=== PATIENT | female | born 1990 | race Caucasian/White ===

== ENCOUNTER 2022-02-17 07:03 | Emergency (ER) | payer MEDICAID, SELFPAY ==
[2022-02-17 07:04] VITALS: BP 145/85; PULSE 100; RESP 18; TEMP 36.4; O2SAT 100
--- NOTE | 2022-02-17 07:10 | PC.NURSE ---
when questioned pt admits to marijuana and meth use within last several days and thinks that may have set me over the edge . pt fearful. crying. anxious. in green scrubs with friend at bedside. abrasions noted to right forearm.
[2022-02-17 07:39] LABS: Basophils Absolute Auto 0.1 K/mm3 (0.0-0.1); Basophils Percent Auto 0.6 % (0.2-1.2); Eosinophils Absolute Auto 0.2 K/mm3 (0-0.3); Eosinophils Percent Auto 1.8 % (0-4.4); Hematocrit 44.5 % (37.0-47.0); Hemoglobin 15.1 g/dL (12.0-15.0); Immature Granulocyte Absolute 0.03 K/mm3 (0.00-0.031); Immature Granulocyte Percent A 0.3 % (0-0.5); Lymphocytes Absolute Auto 1.59 K/mm3 (0.9-3.2); Lymphocytes Percent Auto 13.4 % (18.3-44.2); Mean Corpuscular HGB Conc 33.9 g/dl (32-36); Mean Corpuscular Hemoglobin 31.2 pg (26-34); Mean Corpuscular Volume 91.9 fl (80-100); Mean Platelet Volume 9.9 fl (7.4-10.4); Monocytes Absolute Auto 0.5 K/mm3 (0.1-0.6); Neutrophils Absolute Auto 9.5 K/mm3 (1.3-6.7); Neutrophils Percent Auto 79.9 % (45.5-73.1); Platelet Count Result 296 k/mm3 (150-375); Red Blood Count 4.84 M/mm3 (4.2-5.4); Red Cell Distribution Width 12.6 % (11.5-14.5); White Blood Count 11.9 K/mm3 (4.5-10.0)
[2022-02-17 07:46] VITALS: BP 117/84; PULSE 93; TEMP 37; O2SAT 96
[2022-02-17 07:49] LABS: Alanine Aminotransferase 15 U/L (6-35); Albumin Level 4.7 g/dL (3.5-5.1); Alkaline Phosphatase 59 U/L (38-126); Anion Gap 6 mmol/L (8-16); Aspartate Amino Transferase 23 U/L (14-36); Bilirubin,Total 0.7 mg/dL (0.2-1.3); Blood Urea Nitrogen 15 mg/dL (7-17); Calcium 9.1 mg/dL (8.4-10.2); Carbon Dioxide 24 mmol/L (22-30); Chloride 108 mmol/L (98-107); Estimated CRCL calculation 110 ml/min; Estimated Glomerular Filt Rate > 60; Glucose 112 mg/dL (65-110); Potassium 4.1 mmol/L (3.4-5.0); Sodium 138 mmol/L (137-145)
[2022-02-17 07:50] LABS: Acetaminophen < 10 ug/mL (10-30); Ethanol < 10 mg/dL (<10); Salicylate < 1.0 mg/dL (2-20)
--- NOTE | 2022-02-17 08:04 | ED.PSYCH ---
HPI - Psych General Chief Complaint: Psychiatric Symptoms <Tg Oro MD - Last Filed: 02/17/22 18:53> Stated Complaint: hearing and seeing things <Tg Oro MD - Last Filed: 02/17/22 18:53> Time Seen by Provider: 02/17/22 08:04 <Tg Oro MD - Last Filed: 02/17/22 18:53> Source: patient <Tg Oro MD - Last Filed: 02/17/22 18:53> Mode of arrival: ambulatory <Tg Oro MD - Last Filed: 02/17/22 18:53> Limitations: no limitations <Tg Oro MD - Last Filed: 02/17/22 18:53> History of Present Illness HPI Narrative: Patient is 31 years old white female brought to the emergency room by her partner who is telling me that patient been seeing things and hearing things for the last 9 months got worse over the last 2 weeks. Last night patient tried to cut her arms and the burning, trying to kill herself. She denies any fever, chills, chest pain, shortness of breath, headache <Tg Oro MD - Last Filed: 02/17/22 18:53> Related Data Allergies/Adverse Reactions: Allergies Allergy/AdvReac Type Severity Reaction Status Date / Time No Known Allergies Allergy Verified 02/18/22 00:21 <Tg Oro MD - Last Filed: 02/17/22 18:53> Review of Systems Review of Systems: All systems reviewed & are unremarkable except as noted in HPI and below <Tg Oro MD - Last Filed: 02/17/22 18:53> PMFSH Social History Social History: Social History Substance use type: marijuana and amphetamines <Tg Oro MD - Last Filed: 02/17/22 18:53> Exam Narrative: General appearance: Well-developed, well-nourished, crying, her partner at the bedside Skin: Normal color multiple cuts of the left forearm Head: Normocephalic, nontraumatic Eyes: Clear conjunctiva ENT: Oropharynx normal, ears normal, nose normal Neck: Supple, nontender Chest and respiratory: Airway patent, no respiratory distress, no accessory muscle use Heart: Regular rate/rhythm Abdomen: Soft, nontender, no organomegaly, quiet bowel sounds Vascular: Normal peripheral pulses, normal capillary refill. Musculoskeletal: Normal range of motion, nontender back Neurologic: Alert and oriented ?3, severely depressed, crying <Tg Oro MD - Last Filed: 02/17/22 18:53> Course Reevaluation(s) Reevaluation #1: signed out to me pending psych eval and dispo. Psych saw pt and rec transfer to psych facility. She has been resting comfortably during my shift. Signed out to oncoming ER physician. <Sejal Fowler MD - Last Filed: 02/18/22 07:10> Reevaluation #2: Patient was accepted to [facility] by Dr. Randle. Patient is going as involuntary status. Patient will be transferred by [facility]. At this time transport is pending. <Ten Cartwright MD - Last Filed: 02/18/22 23:28> Vital Signs Vital signs: Vital Signs Temperature 97.6 F 02/17/22 07:04 Pulse Rate 100 02/17/22 07:04 Respiratory Rate 18 02/17/22 07:04 Blood Pressure 145/85 H 02/17/22 07:04 Pulse Oximetry 100 02/17/22 07:04 Oxygen Delivery Room Air 02/17/22 07:04 Temperature 97.6 F 02/18/22 22:42 Pulse Rate 66 02/18/22 22:42 Respiratory Rate 16 02/18/22 22:42 Blood Pressure 96/56 L 02/18/22 22:42 Pulse Oximetry 97 02/18/22 22:42 Oxygen Delivery Room Air 02/17/22 07:04 <Tg Oro MD - Last Filed: 02/17/22 18:53> Vital Signs Temperature 97.6 F 02/17/22 07:04 Pulse Rate 100 02/17/22 07:04 Respiratory Rate 18 02/17/22 07:04 Blood Pressure 145/85 H 02/17/22 07:04 Pulse Oximetry 100 02/17/22 07:04 Oxygen Delivery Room Air 02/17/22 07:
--- NOTE | 2022-02-17 08:12 | PC.NURSE ---
lucille barton for regular diet with no sharps.
[2022-02-17] MEDS: Please add drug allergy info to patient profile. XX (08:30)
[2022-02-17] MEDS: ONDANSETRON HCL ODT 4 MG TABLET PO (08:31)
[2022-02-17] MEDS: LORazepam (*CRX) 0.5 MG TABLET 1 MG PO (08:31)
[2022-02-17 08:33] LABS: SARS-CoV-2 RNA PCR Negative
[2022-02-17 10:56] LABS: Appearance Urine Clear (Clear); Bilirubin Urine Negative (Negative); Blood Urine 1+ (Negative); Color Urine Yellow (Yellow); Glucose Urine UA Negative (Negative); Ketones Urine 2+ mg/dL (Negative); Leukocyte Esterase Ur Negative LEU/UL (Negative); Nitrate Urine Positive (Negative); Protein Urine Negative (Negative); Urobilinogen Urine 0.2 mg/dL (<2.0)
[2022-02-17 11:05] LABS: Bacteria Urine Trace /hpf; Mucus Urine Rare /lpf; RBC Urine 0-2 /hpf (0-2); Squamous Epithelial Cell Urine Rare /hpf (Few)
[2022-02-17 11:07] LABS: Add Urine Microscopic? YES
[2022-02-17 11:12] LABS: Barbiturate Screen Urine Negative (Negative); Benzodiazepines Screen Urine Positive (Negative)
--- NOTE | 2022-02-17 11:43 | PC.NURSE ---
pt medically cleared at this time. ok to contact crisis.
--- NOTE | 2022-02-17 11:46 | PC.NURSE ---
this rn spoke with Dotty at [facility] @ [phone]. They will send someone out in the next 90 minutes.
[2022-02-17 11:58] LABS: Cannabinoid Screen Urine Positive (Negative); Cocaine Screen Urine Negative (Negative); Methadone Screen Urine Negative (Negative); Opiate Screen Urine Negative (Negative); Phencyclidine Screen Urine Negative (Negative)
[2022-02-17 12:06] LABS: Amphetamine Screen Urine Positive (Negative)
--- NOTE | 2022-02-17 13:46 | PC.NURSE ---
Sejal from [facility] eval pt - Voluntary - faxed to [facility].
--- NOTE | 2022-02-17 15:32 | PC.NURSE ---
[facility] refused d/t financial status. RN questioned if they are refusing the patient, and the response was If she can pay she is more than welcome to come.
[2022-02-17] MEDS: NITROFURANTOIN MONOHYD MACROCR 100 MG CAP PO (17:51)
--- NOTE | 2022-02-17 18:31 | PC.NURSE ---
HIGH SCHOOL COORDINATOR NOTIFIED THAT ORDER FOR CLEAR AND PLACEMENT HAS BEEN PLACED BY DR ALANIS
[2022-02-17] MEDS: ACETAMINOPHEN 325 MG TABLET 650 MG PO (18:42)
[2022-02-17] MEDS: IBUPROFEN 600 MG TABLET PO (18:43)
[2022-02-17 20:38] VITALS: BP 96/52; PULSE 90; RESP 16; O2SAT 99
[2022-02-17] MEDS: hydrOXYzine HCL 25 MG TABLET 50 MG PO (20:39)
[2022-02-18] MEDS: Please add drug allergy info to patient profile. XX (00:21)
--- NOTE | 2022-02-18 12:00 | PC.NURSE ---
patient escalated at bedside at this time, requesting to leave the facility. EDP at bedside to expalin that she is not able to leave the ED and needs placement for further evaluation. patient then ran out of ED and stopped willingly and walked back into the department to room 9. Sitter placed at bedside due to elopement risk. Crisis called for follow up and reevaluation due to patients status change.
--- NOTE | 2022-02-18 12:30 | PC.NURSE ---
Patient back in room 9, angry that she cannot leave the facility or go out and smoke. Patient offered nicotin patch but declines at this time. Patient's mother given update per patient request at this time.
[2022-02-18] MEDS: ACETAMINOPHEN 325 MG TABLET 650 MG PO (15:41)
[2022-02-18] MEDS: LORazepam (*CRX) 1 MG TABLET 2 MG PO (15:41)
--- NOTE | 2022-02-18 15:54 | PC.NURSE ---
Mchenry is on the phone interviewing the patient at this time.
--- NOTE | 2022-02-18 16:13 | PC.NURSE ---
[facility] Called to follow up, patient is refusing to go to that facility while on phone with triage rn at [facility] for initial assessment. [facility] reports that patient wants outpatient treatment and refuses to go to facility. No other concerns at this time.
--- NOTE | 2022-02-18 16:32 | PC.NURSE ---
EDP filling out involuntary paperwork on patient due to concerns with patient's safety and patient not wanting treatment.
--- NOTE | 2022-02-18 17:21 | PC.NURSE ---
crisis recontacted and is reaching out to a back joiner. involuntary paperwork needs filled out and faxed to Cande @ [facility] ([phone] phone number)
--- NOTE | 2022-02-18 17:58 | PC.NURSE ---
[facility] here to reevaluate the pt
--- NOTE | 2022-02-18 19:09 | PC.NURSE ---
Involuntary paperwork faxed to Cande at [facility] at the following #: [phone].
--- NOTE | 2022-02-18 19:55 | PC.NURSE ---
Pt to go to [facility] Room 207-B, Accepted by Dr. Randle. Call report to: [phone].
[2022-02-18 20:16] VITALS: BP 125/84; PULSE 92; RESP 16; O2SAT 97
--- NOTE | 2022-02-18 20:25 | PC.NURSE ---
called [facility] to request transport patient. ETA 2300 called [facility] to request transport. declined.
--- NOTE | 2022-02-18 20:34 | PC.NURSE ---
called [facility], [facility], and [facility] to request transport. ALL declined.
[2022-02-18 22:42] VITALS: BP 96/56; PULSE 66; RESP 16; TEMP 36.4; O2SAT 97
--- NOTE | 2022-02-18 22:43 | PC.NURSE ---
[facility] here.
== END 2022-02-18 22:50 ==
PROVIDERS: Emergency Medicine; Emergency Provider Emergency Medicine
DX: F23 Brief psychotic disorder (principal); N39.0 Urinary tract infection, site not specified; F19.10 Other psychoactive substance abuse, uncomplicated; Z20.822 Contact with and (suspected) exposure to COVID-19
CPT/HCPCS: 36415; 80053; 80307; 81001; 81025; 84443; 85025; 99285; A9270; C9803; U0003; U0005